=== PATIENT | male | born 1945 | race Caucasian/White ===

== ENCOUNTER → 2023-08-31 | Outpatient (CLI) | payer OTHER, SELFPAY ==
[2023-08-31 09:09] LABS: Color, Urine Yellow (Yellow); Glucose, Dipstick Normal (Normal); Ketone-Dipstick Negative (Negative); Leukocyte Esterase-Dipstick 25 /ul (Negative); Nitrite-Dipstick Negative (Negative); Occult Blood-Urine Negative /ul (Negative); Protein-Dipstick 30 mg/dl (Negative); Specific Gravity, Urine 1.015 (1.002-1.030); Urine Bilirubin Dipstick Negative (Negative); Urine Clarity Clear (Clear); Urine Urobilinogen Normal (Normal)
[2023-08-31 09:33] LABS: AST(SGOT) 15 U/L (15-37); Alanine Aminotransfer ALT/SGPT 28 U/L (16-61); Albumin, Serum 3.4 g/dL (3.2-5.0); Alkaline Phosphatase 79 U/L (45-117); Anion Gap 3 (5-15); BUN 21 mg/dL (7-18); BUN/Creat Ratio 15.4 RATIO (10-20); Calcium,Total 8.8 mg/dL (8.5-10.1); Chloride 107 mmol/L (98-107); Creatinine, Serum 1.36 mg/dL (0.70-1.30); EST Glomerular Filtration Rate 54 mL/min (>60); Est Glom Filt Rate - Afr Amer 66 mL/min (>60); Globulin 3.5 g/dL (2.2-4.2); Glucose 141 mg/dL (74-106); Potassium 4.1 mmol/L (3.5-5.1); Protein, Total 6.9 g/dL (6.4-8.2); Sodium Level 141 mmol/L (136-145)
== END | disposition home or self-care (01) ==
LOC: LAB 08:29
PROVIDERS: Referring Provider Chiropractor; Visit Provider Chiropractor
DX: E11.9 Type 2 diabetes mellitus without complications (principal)
CPT/HCPCS: 36415; 80053; 81002